=== PATIENT | male | born 1960 | race Caucasian/White ===

== ENCOUNTER 2017-01-28 15:45 | Emergency (ER) | payer BC ==
[2017-01-28 19:49] VITALS: BP 118/64
== END 2017-01-28 19:49 | disposition home or self-care (01) ==
LOC: ED 15:45
DX: M54.16 Radiculopathy, lumbar region (principal); M51.36 Other intervertebral disc degeneration, lumbar region; I10 Essential (primary) hypertension
CPT/HCPCS: J1100; J1885